=== PATIENT | female | born 1990 | race Caucasian/White ===

== ENCOUNTER 2021-07-25 11:33 | Outpatient (REF) | payer SELFPAY ==
[2021-07-25 13:22] LABS: Binax Internal Control QC Valid; Binax Lot number: 9864; Binax Now Covid-19 Ag Positive (Negative)
== END 2021-07-25 11:34 | disposition home or self-care (01) ==
LOC: HO.LAB 11:33
PROVIDERS: Visit Provider Internal Medicine
DX: Z20.822 Contact with and (suspected) exposure to COVID-19 (principal)
CPT/HCPCS: C9803